=== PATIENT | female | born 1995 | race Caucasian/White ===

== ENCOUNTER 2022-05-27 11:24 | Outpatient (CLI) | payer OTHER, SELFPAY ==
[2022-05-27 11:53] LABS: Hemoglobin A1C* 5.5 % (0-5.6)
[2022-05-29 00:59] LABS: Rubella Antibody IgG 13.7 IU/mL
== END 2022-05-27 11:25 | disposition home or self-care (01) ==
PROVIDERS: Visit Provider Physician Assistant
DX: Z01.419 Encounter for gynecological examination (general) (routine) without abnormal findings (principal); E03.9 Hypothyroidism, unspecified; F41.9 Anxiety disorder, unspecified; F32.A Depression, unspecified
CPT/HCPCS: 83036; 84443; 86762; 86787

== ENCOUNTER 2022-12-28 09:50 | Outpatient (CLI) | payer OTHER, SELFPAY ==
[2022-12-28 17:44] LABS: HCG Quantitative* 39.35 mIU/mL
== END 2022-12-28 09:51 | disposition home or self-care (01) ==
PROVIDERS: Visit Provider Physician Assistant
DX: O20.9 Hemorrhage in early pregnancy, unspecified (principal)
CPT/HCPCS: 84702; 86850; 86900; 86901

== ENCOUNTER 2022-12-29 11:59 | Outpatient (CLI) | payer OTHER, SELFPAY | END 2022-12-29 12:00 | disposition home or self-care (01) | LOC: NFLDREF 12:01 | PROVIDERS: Visit Provider Physician Assistant | DX: O20.9 Hemorrhage in early pregnancy, unspecified (principal) | CPT/HCPCS: 85461; J2791 ==

== ENCOUNTER 2022-12-30 16:16 | Outpatient (CLI) | payer OTHER, SELFPAY ==
[2022-12-30 17:45] LABS: HCG Quantitative* 32.22 mIU/mL
== END 2022-12-30 16:17 | disposition home or self-care (01) ==
LOC: NFLDREF 16:16
PROVIDERS: Visit Provider Physician Assistant
DX: O20.9 Hemorrhage in early pregnancy, unspecified (principal)
CPT/HCPCS: 84702

== ENCOUNTER 2023-01-02 10:58 | Outpatient (CLI) | payer OTHER, SELFPAY ==
[2023-01-02 19:31] LABS: HCG Quantitative* 24.71 mIU/mL
== END 2023-01-02 10:59 | disposition home or self-care (01) ==
PROVIDERS: Visit Provider Physician Assistant
DX: O20.9 Hemorrhage in early pregnancy, unspecified (principal)
CPT/HCPCS: 84702; 84703

== ENCOUNTER 2023-01-09 16:17 | Outpatient (CLI) | payer OTHER, SELFPAY ==
[2023-01-09 19:13] LABS: HCG Quantitative* 38.12 mIU/mL
== END 2023-01-09 16:18 | disposition home or self-care (01) ==
LOC: NFLDREF 16:17
PROVIDERS: Visit Provider Physician Assistant
DX: O03.9 Complete or unspecified spontaneous abortion without complication (principal)
CPT/HCPCS: 84702

== ENCOUNTER 2023-01-10 12:51 | Outpatient (CLI) | payer OTHER, SELFPAY ==
--- NOTE | 2023-01-10 13:00 | CRLHL7_ITS ---
For Patients: As a result of the Century Cures Act, medical imaging exams and procedure reports are released immediately into your electronic medical record. You may view this report before your referring provider. If you have questions, please contact your health care provider. INDICATION: bleeding in early . Non-viable per HCG`s COMPARISON: None. TECHNIQUE: Real-time lainez-scale imaging of the pelvis was performed. FINDINGS: There is no intrauterine . The uterus measures 5.6 x 2.3 x 3.1 cm. The endometrium measures 4 millimeters. No endometrial fluid. Bilateral ovarian follicles are present. No pelvic free fluid. Solid-appearing nodule right ovary measuring 1.2 cm. IMPRESSION: No intrauterine . 1.2 cm solid right ovarian nodule appears to represent a possible dermoid. Ectopic is considered doubtful with the provided history of nonviable hCGs. Follow-up as indicated. Dictated by John Ocampo MD @ 01/11/2023 11:19:03 AM (Electronically Signed)
== END 2023-01-10 12:52 | disposition home or self-care (01) ==
LOC: US 12:52
PROVIDERS: Visit Provider Obstetrics & Gynecology
DX: O20.9 Hemorrhage in early pregnancy, unspecified (principal)
CPT/HCPCS: 76817

== ENCOUNTER 2023-01-10 14:16 | Outpatient (CLI) | payer OTHER, SELFPAY ==
[2023-01-10 15:09] LABS: Albumin* 4.8 g/dL (3.3-5.0); Chloride* 105 mmol/L (96-114)
[2023-01-10 15:10] LABS: Potassium* 4.1 mmol/L (3.6-5.1); Sodium* 138 mmol/L (135-149)
[2023-01-10 15:12] LABS: Aspartate Amino Transferase* 43 U/L (12-35); Bilirubin Total* 0.4 mg/dL (0.1-1.5); Carbon Dioxide* 25 mmol/L (20-32); Creatinine* 0.5 mg/dL (0.5-1.5); Estimated Glomerular Filt Rate 130 ml/min; Total Protein* 8.2 g/dL (6.0-8.3)
[2023-01-10 15:13] LABS: Alanine Aminotransferase* 39 U/L (4-35); Alkaline Phosphatase* 55 U/L (40-150); Blood Urea Nitrogen* 17 mg/dL (5-24); Calcium* 9.5 mg/dL (8.4-10.6); Glucose* 102 mg/dL (60-115)
== END 2023-01-10 14:17 | disposition home or self-care (01) ==
LOC: NFLDREF 14:19
PROVIDERS: Visit Provider Obstetrics & Gynecology
DX: Z79.899 Other long term (current) drug therapy (principal)
CPT/HCPCS: 80053; J9250

== ENCOUNTER 2023-01-13 15:59 | Outpatient (CLI) | payer OTHER, SELFPAY ==
[2023-01-13 18:23] LABS: HCG Quantitative* 29.47 mIU/mL
== END 2023-01-13 16:00 | disposition home or self-care (01) ==
LOC: NFLDREF 15:59
PROVIDERS: PCP Obstetrics & Gynecology; Visit Provider Obstetrics & Gynecology
DX: O02.89 Other abnormal products of conception (principal)
CPT/HCPCS: 84702

== ENCOUNTER 2023-01-16 07:44 | Outpatient (CLI) | payer OTHER, SELFPAY ==
[2023-01-16 07:55] LABS: Basophils Absolute Auto 0.03 K/uL (0.00-0.30); Basophils Percent Auto 0.4 % (0.0-3.0); Eosinophils Absolute Auto 0.08 K/uL (0.00-0.50); Eosinophils Percent Auto 1.2 % (0.0-7.0); Hematocrit 40.2 % (33.0-51.0); Hemoglobin* 12.9 gm/dL (12.0-16.0); Immature Granulocytes Abs Auto 0.03 K/uL (0.00-0.30); Immature Granulocytes Pct Auto 0.4 %; Lymphocytes Percent Auto 21.4 % (20-44); Mean Corpuscular HGB Conc 32 gm/dL (32-36); Mean Corpuscular Hemoglobin 27 pg (26-34); Mean Corpuscular Volume 85 fL (80-100); Monocytes Absolute Auto 0.41 K/UL (0.00-0.90); Monocytes Percent Auto 6.1 % (0.0-11.0); Neutrophils Absolute Auto 4.74 K/uL (1.7-7.0); Neutrophils Percent Auto 70.5 % (42.0-72.0); Platelet Count* 191 K/uL (140-440); RDW Coefficient of Variation % 13.6 % (11.5-15.5); Red Blood Count 4.74 m/uL (4.00-5.20); White Blood Count* 6.73 K/uL (4.50-11.00)
[2023-01-16 08:01] LABS: Slide Review Reflex No
[2023-01-16 09:34] LABS: Albumin* 4.2 g/dL (3.3-5.0); Chloride* 107 mmol/L (96-114)
[2023-01-16 09:35] LABS: Potassium* 4.6 mmol/L (3.6-5.1); Sodium* 137 mmol/L (135-149)
[2023-01-16 09:37] LABS: Bilirubin Total* 0.5 mg/dL (0.1-1.5); Carbon Dioxide* 22 mmol/L (20-32); Creatinine* 0.6 mg/dL (0.5-1.5); Estimated Glomerular Filt Rate 124 ml/min
[2023-01-16 09:38] LABS: Alanine Aminotransferase* 32 U/L (4-35); Alkaline Phosphatase* 40 U/L (40-150); Aspartate Amino Transferase* 33 U/L (12-35); Blood Urea Nitrogen* 13 mg/dL (5-24); Calcium* 8.6 mg/dL (8.4-10.6); Glucose* 133 mg/dL (60-115)
[2023-01-16 09:48] LABS: HCG Quantitative* 8.66 mIU/mL
== END 2023-01-16 07:45 | disposition home or self-care (01) ==
PROVIDERS: PCP Obstetrics & Gynecology; Visit Provider Obstetrics & Gynecology
DX: O00.90 Unspecified ectopic pregnancy without intrauterine pregnancy (principal); O02.89 Other abnormal products of conception
CPT/HCPCS: 80053; 84702; 85025

== ENCOUNTER 2023-01-23 08:42 | Outpatient (CLI) | payer OTHER, SELFPAY ==
[2023-01-23 18:40] LABS: HCG Quantitative* < 2.39 mIU/mL
== END 2023-01-23 08:43 | disposition home or self-care (01) ==
PROVIDERS: PCP Obstetrics & Gynecology; Visit Provider Obstetrics & Gynecology
DX: O00.90 Unspecified ectopic pregnancy without intrauterine pregnancy (principal)
CPT/HCPCS: 84702

== ENCOUNTER 2023-06-12 16:13 | Outpatient (CLI) | payer OTHER, SELFPAY | END 2023-06-12 16:14 | disposition home or self-care (01) | LOC: NFLDREF 06-14 08:56 | PROVIDERS: Referring Provider Obstetrics & Gynecology; Visit Provider Obstetrics & Gynecology | DX: Z87.59 Personal history of other complications of pregnancy, childbirth and the puerperium (principal) | CPT/HCPCS: 84702 ==

== ENCOUNTER 2023-06-29 13:48 | Outpatient (CLI) | payer OTHER, SELFPAY ==
[2023-06-29 18:46] LABS: Chlamydia DNA Amplified* NOT DETECTED (No Detected); GC DNA Amplified* NOT DETECTED (No Detected)
== END 2023-06-29 13:49 | disposition home or self-care (01) ==
PROVIDERS: Visit Provider Physician Assistant
DX: Z34.91 Encounter for supervision of normal pregnancy, unspecified, first trimester (principal); O34.81 Maternal care for other abnormalities of pelvic organs, first trimester; N83.12 Corpus luteum cyst of left ovary; N83.11 Corpus luteum cyst of right ovary; Z3A.01 Less than 8 weeks gestation of pregnancy
CPT/HCPCS: 76817; 81241; 84443; 86592; 86703; 86762; 86787; 86803; 86850; 86900; 86901; 87086; 87340; 87491; 87591